=== PATIENT | female | born 1970 | race Caucasian/White ===

== ENCOUNTER 2017-08-18 15:23 | Emergency (ER) | payer MEDICAID, OTHER ==
[~2017-08-18] VITALS: Ht 162.6 cm; Wt 79.0 kg
[2017-08-18 15:40] VITALS: BP 170/77; PULSE 112; RESP 16; TEMP 98.7; O2SAT 98
[2017-08-18] MEDS ORDERED: KETOROLAC TROMETHAMINE 60 MG/2 ML (IM) VIAL IM ONE (16:15)
--- NOTE | 2017-08-18 16:24 | PD ---
HPI Chief Complaint: Musculoskeletal Complaint Time Seen by Provider: 15:58 Travel History International Travel<30 days: No Contact w/Intl Traveler<30days: No Traveled to known affect area: No History of Present Illness HPI 46-year-old female presents to the emergency room for evaluation of acute on chronic right shoulder pain. Patient states she was first diagnosed with tendinitis by her primary care physician 2 months ago. She had an x-ray that showed tendinitis at that time. She was not referred anywhere or given anything for pain. Patient states her symptoms were okay until 2 days ago. She woke up with pain worse than before. She has not taken anything for her symptoms. She denies any recent trauma or injury. Denies paresthesias. Localized to the right outer humeral head with radiation into the neck and down the arm. Worse with any range of motion of the arm. Patient denies chronic medical conditions or daily medications. PFSH Past Medical History ?: Not LMP: LILIANA Social History Tobacco Use: No Allergies-Medications (Allergen,Severity, Reaction): Coded Allergies: No Known Allergies (Verified Allergy, Unknown, 08/18/17) Reported Meds & Prescriptions Reported Meds & Active Scripts Active No Active Prescriptions or Reported Medications Review of Systems Except as stated in HPI: all other systems reviewed are Neg Physical Exam Narrative GENERAL: Well-nourished, well-developed female in no acute distress. Afebrile. Ambulatory. SKIN: Focused skin assessment warm/dry. No erythema or ecchymosis. HEAD: Normocephalic. EYES: No scleral icterus. No injection or drainage. NECK: Supple, trachea midline. No JVD or lymphadenopathy. CARDIOVASCULAR: Regular rate and rhythm without murmurs, gallops, or rubs. RESPIRATORY: Breath sounds equal bilaterally. No accessory muscle use. MUSCULOSKELETAL: No cyanosis. No obvious edema. Limited range of motion of the shoulder secondary to pain. 2+ radial pulse. Radial, ulnar, median nerves intact. Extreme tenderness to palpation of the right lateral humeral head. Data Data Last Documented VS Vital Signs Date Time Temp Pulse Resp B/P (MAP) Pulse Ox O2 Delivery O2 Flow Rate FiO2 08/18/17 15:40 98.7 112 16 170/77 (108) 98 Orders Orders Ketorolac Inj (Toradol Inj) (08/18/17 16:15) [facility] Medical Decision Making Medical Screen Exam Complete: Yes Emergency Medical Condition: Yes Medical Record Reviewed: Yes Differential Diagnosis Strain, tendinitis, spasm, fracture, contusion Narrative Course 46-year-old female with a history of right shoulder denies presents to the emergency room for evaluation of right shoulder pain for the past 2 days. She denies trauma or injury. Was first diagnosed after x-ray 2 months ago by her primary care physician. There is extreme tenderness to palpation of the right upper extremity and limited range of motion secondary to pain. Right upper extremity is neurovascularly intact with 2+ radial pulse. Radial, ulnar, and median nerves intact. Without trauma or injury, there is no indication for emergent imaging at this time. Likely exacerbation of chronic tendinitis. Patient will be given Toradol in the emergency room and discharged with prescription for ibuprofen. She was instructed to do rotator cuff injury exercises to prevent frozen shoulder. She is visiting from [place]. Told to follow-up with her primary care physician for outpatient referral to orthopedic surgeon if symptoms persist or return for worsening symptoms. She understands and agrees to plan. Diagnosis Primary Impression: Right shoulder tendinitis Referrals: Primary Care Physician Additional Instructions: Rest and drink plenty of fluids. Take ibuprofen with food as directed, as needed for pain. Apply ice to the affected area for 20 minutes at a time, as needed for pain and swelling. Follow-up with a primary care physician. Return to the emergency room for worsening symptoms. Med/Other Pt SpecificInfo: Prescription(s) given Scripts No Active Prescriptions or Reported Meds Disposition: 01 DISCHARGE HOME Condition: Stable Tanya Woody Aug 18, 2017 16:24
[2017-08-18] MEDS ORDERED: IBUP-232 PO (16:25)
[2017-08-18 17:00] VITALS: BP 138/75; PULSE 120; RESP 18; O2SAT 97
[2017-08-18] MEDS ORDERED: ACETAMINOPHEN/HYDROcodone 325 MG/5 MG TAB PO ONE (17:00)
[2017-08-18 17:25] VITALS: PULSE 96; RESP 18; O2SAT 99
== END 2017-08-18 17:35 | disposition home or self-care (01) ==
LOC: PHEFT 15:23
DX: M75.91 Shoulder lesion, unspecified, right shoulder (principal)
CPT/HCPCS: 96372; 99284; J1885

== ENCOUNTER 2017-08-20 10:58 | Emergency (ER) | payer MEDICAID, OTHER ==
[~2017-08-20 10:58] MED LIST: IBUP-232 PO
[2017-08-20 11:08] VITALS: BP 132/63; PULSE 110; RESP 20; TEMP 98.5; O2SAT 98
[2017-08-20] MEDS ORDERED: KETOROLAC TROMETHAMINE 60 MG/2 ML (IM) VIAL IM ONE (12:15)
--- NOTE | 2017-08-20 12:19 | PD ---
HPI Chief Complaint: Musculoskeletal Complaint Time Seen by Provider: 12:01 Travel History International Travel<30 days: No Contact w/Intl Traveler<30days: No Traveled to known affect area: No History of Present Illness HPI 46-year-old female presents emergency department for evaluation of right shoulder and arm pain 3 months. She denies injury or trauma. Patient is visiting from out of town. She was seen here several days ago and diagnosed with chronic tendinitis in the right upper extremity. She was given a shot of Toradol. Which she reports improved her pain. She was discharged home with ibuprofen. She reports the medicine is not helping her symptoms. She reports the pain is constant, throbbing, slightly relieved with rest. She denies fever , chills, chest pain, shortness of breath, numbness/tingling/weakness of the upper extremity. PFSH Past Medical History Diminished Hearing: No Influenza Vaccination: No ?: Not Past Surgical History Surgical History: No Previous Surgery Social History Alcohol Use: No Tobacco Use: Yes (/ PPD) Substance Use: No Allergies-Medications (Allergen,Severity, Reaction): Coded Allergies: No Known Allergies (Verified Allergy, Unknown, 08/18/17) Reported Meds & Prescriptions Reported Meds & Active Scripts Active Ibuprofen 600 Mg Tab 600 Mg PO Q8HR PRN Review of Systems Except as stated in HPI: all other systems reviewed are Neg General / Constitutional: No: Fever Cardiovascular: No: Chest Pain or Discomfort Physical Exam Narrative GENERAL: Well-nourished, well-developed patient. SKIN: Focused skin assessment warm/dry. HEAD: Normocephalic. EYES: No scleral icterus. No injection or drainage. NECK: Supple, trachea midline. No JVD or lymphadenopathy. CARDIOVASCULAR: Regular rate and rhythm without murmurs, gallops, or rubs. RESPIRATORY: Breath sounds equal bilaterally. No accessory muscle use. GASTROINTESTINAL: Abdomen soft, non-tender, nondistended. MUSCULOSKELETAL: No cyanosis. No obvious edema. Limited range of motion of the shoulder secondary to pain. 2+ radial pulse. Radial, ulnar, median nerves intact. Moderate tenderness to palpation of the right lateral humeral head. Data Data Last Documented VS Vital Signs Date Time Temp Pulse Resp B/P (MAP) Pulse Ox O2 Delivery O2 Flow Rate FiO2 08/20/17 11:08 98.5 110 20 132/63 (86) 98 Orders Orders Ketorolac Inj (Toradol Inj) (08/20/17 12:15) ^ Sling (08/20/17 12:09) MDM Medical Decision Making Medical Screen Exam Complete: Yes Emergency Medical Condition: Yes Differential Diagnosis Tendinitis, rotator cuff injury, unspecified right upper extremity pain Narrative Course 46-year-old female presents emergency department for evaluation of right shoulder and arm pain 3 months. Patient is visiting here from out of town. She reports the pain is constant, throbbing and is unrelieved by OTC Motrin. Patient reports the injection she received several days ago improved symptoms which was Toradol. She denies fever or chills. Her physical exam is reassuring. Patient is nontoxic-appearing and is resting on stretcher. She has tenderness to the right upper extremity near the humeral head and limited range of motion due to the pain. During patient's physical exam she was observed moving the right upper extremity. The extremity is neurovascularly intact. No joint erythema or swelling. Patient will be given a sling and injection or Toradol. Instructed to follow-up with local clinics. Diagnosis Primary Impression: Tendinitis Referrals: [facility] Additional Instructions: Continue the ibuprofen 600 800 mg every 6-8 hours as needed for pain. Take [id number] Tylenol as needed for pain. Use a sling for support. Follow-up local clinic. Return to emergency department if he developed new or worsening symptoms. Disposition: 01 DISCHARGE HOME Condition: Stable Keely Ly Aug 20, 2017 12:19
== END 2017-08-20 12:30 | disposition home or self-care (01) ==
LOC: PHEFT 10:58
DX: M77.9 Enthesopathy, unspecified (principal); M25.511 Pain in right shoulder; M79.601 Pain in right arm; F17.200 Nicotine dependence, unspecified, uncomplicated
CPT/HCPCS: 96372; 99284; J1885